=== PATIENT | male | born 1940 | race Caucasian/White ===

== ENCOUNTER 2018-07-19 16:58 | Inpatient (IN) | payer MEDICARE ==
[2018-07-19 17:43] VITALS: BMI 25.4
[2018-07-19 22:03] LABS: ALT (SGPT) 15 U/L (8-55); AST (SGOT) 34 U/L (5-34); Albumin 3.2 g/dL (3.4-4.8); Alkaline Phosphatase 55 U/L (40-150); Anion Gap 13 mmol/L (10-20); BUN (Urea Nitrogen) 10 mg/dL (8.4-25.7); Bilirubin, Total 1.2 mg/dL (0.2-1.2); Calc. Creatinine Clearance 86 mL/min (70-130); Calcium 8.9 mg/dL (7.8-10.44); Carbon Dioxide 25 mmol/L (23-31); Chloride 100 mmol/L (98-107); Estimated GFR-MDRD 86; Globulin 2.8 g/dL (2.4-3.5); Glucose 93 mg/dL (83-110); Potassium 3.9 mmol/L (3.5-5.1); Sodium 134 mmol/L (136-145)
[2018-07-19 22:05] LABS: #Basophils 0.1 thou/uL (0.0-0.2); #Eosinphils 0.3 thou/uL (0.0-0.7); #Lymphocytes 1.4 thou/uL (1.20-3.40); #Monocytes 0.6 thou/uL (0.11-0.59); #Neutrophils 3.7 thou/uL (1.40-6.50); %Basophils 0.8 % (0.0-1.0); %Eosinophils 5.1 % (0.0-10.0); %Lymphocytes 22.6 % (21.0-51.0); %Neutrophils 61.4 % (42.0-75.0); Hemoglobin 11.6 g/dL (14.0-18.0); Mean Corpuscular HGB CONC 33.3 g/dL (32.0-36.0); Mean Corpuscular Hemoglobin 30.4 pg (27.0-31.0); Mean Platelet Volume 6.8 fL (7.4-10.4); Platelet Count 204 thou/uL (130-400); RBC Distribution Width 11.3 % (11.5-14.5); Red Blood Cell (RBC) Count 3.81 mill/uL (4.70-6.10)
[2018-07-20] MEDS: Apixaban 5 MG TAB PO SCH ×3 (06:28→21:40)
[2018-07-20] MEDS: Dronedarone HCl 400 MG TAB PO SCH ×2 (08:35→17:49)
[2018-07-20] MEDS: traMADol HCl 50 MG TAB PO PRN (10:45)
[2018-07-21] MEDS: traMADol HCl 50 MG TAB PO PRN ×3 (00:31→16:41)
[2018-07-21] MEDS: Dronedarone HCl 400 MG TAB PO SCH ×2 (08:29→16:42)
[2018-07-21] MEDS: Apixaban 5 MG TAB PO SCH ×2 (08:29→19:31)
[2018-07-22] MEDS: traMADol HCl 50 MG TAB PO PRN ×2 (08:54→16:46)
[2018-07-22] MEDS: Dronedarone HCl 400 MG TAB PO SCH ×2 (08:54→16:46)
[2018-07-22] MEDS: Apixaban 5 MG TAB PO SCH ×2 (08:54→20:48)
--- NOTE | 2018-07-22 18:11 | PRG ---
DATE OF SERVICE: 07/21/2018 SUBJECTIVE: The patient feels well. Anticipating therapy tomorrow with no complaints. OBJECTIVE: VITAL SIGNS: Show blood pressure is down to 120/56, temperature is 96, pulse 72, respirations 18, O2 saturations 96% on room air. LUNGS: Clear. CARDIAC: Showed regular rhythm. ABDOMEN: Soft and nontender. EXTREMITIES: Right hip shows no swelling, erythema, or drainage in healing incision. ASSESSMENT: 1. Healing right total hip replacement. 2. Stable hypertension, controlled to goal. 3. Paroxysmal atrial fibrillation, appeared to be converted and controlled at sinus rhythm, but on persistent anticoagulation. PLAN: 1. Continue PT/OT. Continue pain relief. Continue to monitor for signs of recurrent atrial fibrillation. 2. Continue to monitor for signs of infection of the hip. Job ID: [id number]
--- NOTE | 2018-07-22 18:43 | HP ---
Admission to the skilled unit. HISTORY OF PRESENT ILLNESS: The patient is a very pleasant 77-year-old white male, status post recent right hip replacement with no complications, who was admitted to the skilled unit for continued physical therapy. He has comorbidities of paroxysmal atrial fibrillation, systolic heart failure with an ejection fraction of 45%, and a negative nuclear stress test in May of 2018. He also has a history of hypertension, which has been well controlled. He denies any chest pain, shortness of breath, palpitations, nausea, or vomiting. PAST MEDICAL HISTORY: Remarkable for the above mentioned plus osteoarthritis, causing the elective right hip replacement. HOME MEDICATIONS: Include: 1. Apixaban 5 mg twice daily for paroxysmal atrial fibrillation. 2. Multaq 400 mg twice daily. 3. Felodipine 5 mg daily. 4. Tramadol 50 mg every 8 hours as needed. ALLERGIES: HE HAS NO KNOWN ALLERGIES. SOCIAL HISTORY: He drinks 3 to 5 cans of beer today. He lives alone. He is an ex-smoker. FAMILY MEDICAL HISTORY: Positive for father of a heart attack at age 53. REVIEW OF SYSTEMS: HEENT: Denies any headaches, dizziness, change in vision or hearing, hoarseness, or dysphagia. PULMONARY: Denies cough, sputum production, pneumonia, asthma, or tuberculosis. CARDIOVASCULAR: Denies chest pain, orthopnea, paroxysmal nocturnal dyspnea, or edema. GASTROINTESTINAL: Denies nausea, vomiting, diarrhea, constipation, or abdominal pain. GENITOURINARY: Denies dysuria, hematuria, or nocturia. MUSCULOSKELETAL: Has some pain at the right lateral hip incision. NEUROLOGIC: Denies localized numbness, weakness, or extremities. PHYSICAL EXAMINATION: GENERAL: The patient is an elderly white male, somewhat agitated. He wishes therapy, but in no distress. VITAL SIGNS: Show him to have a temperature 98, pulse 76, respirations 20, O2 sat is 94% on room air, and blood pressure 130/65. HEENT: Pupils are equal, round, and reactive to light and accommodation. Sclerae anicteric. Conjunctivae pale. Oral mucous membranes well hydrated. NECK: Supple. There are no nodes or masses. JVP is not elevated. Carotids 2+ and equal without bruits. LUNGS: Clear. CARDIAC: Showed regular rhythm. No gallops or murmurs. ABDOMEN: Soft, nontender with no masses or organomegaly. SKIN/EXTREMITIES: Displayed healing right lateral hip incision. No erythema, warmth, or drainage. NEUROLOGICAL: Cranial nerves intact. Deep tendon reflexes 2+ and equal. Absent Babinski. LABORATORY DATA: Show a white count of 6000, hematocrit 34, and hemoglobin 11. Sodium is 134, potassium 3.9, chloride 100, bicarb 25, BUN 10, creatinine 0.86, glucose 93, and calcium 8.9, AST 34, ALT 15, albumin 3.2, and globulin 2.8. ASSESSMENT: A 77-year-old white male with history of osteoarthritis, status post elective right hip replacement, doing well, and admitted for therapy with no evidence of postop complications of infection or bleeding. 1. Hypertension, controlled to goal, on felodipine. We will continue. 2. Paroxysmal atrial fibrillation, converted to sinus rhythm on Multaq, but still on apixaban for rate control and anticoagulation. 3. Systolic heart failure with ejection fraction 45%, compensated. 4. History of alcohol abuse, drinking 5 cans of beer daily. 5. History of negative PET scan with no evidence of coronary artery disease. PLAN: 1. Continue PT and OT. 2. Continue home medications of apixaban twice daily, dronedarone twice daily, felodipine 5 mg daily, and tramadol as needed for pain. 3. Stress ulcer prophylaxis will be started. Job ID: [id number]
[2018-07-22] MEDS: Famotidine 20 MG TAB PO SCH (20:48)
--- NOTE | 2018-07-23 00:02 | HP ---
SUBJECTIVE: The patient feels well. Still somewhat agitated, unable to have therapy, but has been moved to the room where he can sit in his chair and do some exercises. OBJECTIVE: VITAL SIGNS: Shows his blood pressure is 153/65, temperature is 98, pulse 78, respirations 18, O2 sats 96% on room air. LUNGS: Clear. CARDIAC EXAMINATION: Regular rhythm. ABDOMEN: Soft and nontender. SKIN/EXTREMITIES: Show healing right lateral hip incision. ASSESSMENT: 1. Healing right total hip replacement. 2. Stable paroxysmal atrial fibrillation, still apparent sinus rhythm. 3. Hypertension, borderline control. We will continue on felodipine and monitor. PLAN: 1. Continue PT/OT. 2. Continue to monitor vital signs. 3. Continue rate control and anticoagulation of paroxysmal atrial fibrillation. 4. Continue pain relief with tramadol. Job ID: [id number]
--- NOTE | 2018-07-23 07:07 | PRG ---
DATE OF SERVICE: 07/22/2018 SUBJECTIVE: The patient feels well and very happy with therapy as he is sore all over, but feels that he is improving with therapy, and this is what he was requested. He is having no chest pain or shortness of breath or palpitations. OBJECTIVE: VITAL SIGNS: Temperature is 99.1, pulse 81, respirations 18, O2 sats 99% on room air, blood pressure 127/58. LUNGS: Clear. CARDIAC: Showed regular rhythm. ABDOMEN: Soft and nontender. EXTREMITIES: Right hip shows no swelling, erythema, or drainage. ASSESSMENT: 1. Resolving right total hip. 2. Stable hypertension. 3. Paroxysmal atrial fibrillation. No evidence for recurrence, on Multaq and apixaban with no evidence of bleeding. PLAN: Continue PT/OT. Continue pain relief as needed. Continue to monitor for atrial fibrillation. Continue to monitor for signs of infection. Job ID: [id number]
[2018-07-23] MEDS: Dronedarone HCl 400 MG TAB PO SCH ×2 (09:06→17:00)
[2018-07-23] MEDS: Famotidine 20 MG TAB PO SCH ×2 (09:06→20:56)
[2018-07-23] MEDS: Apixaban 5 MG TAB PO SCH ×2 (09:06→20:55)
[2018-07-23] MEDS: traMADol HCl 50 MG TAB PO PRN (09:06)
[2018-07-24] MEDS: Famotidine 20 MG TAB PO SCH ×2 (09:07→20:20)
[2018-07-24] MEDS: Dronedarone HCl 400 MG TAB PO SCH ×2 (09:08→17:47)
[2018-07-24] MEDS: traMADol HCl 50 MG TAB PO PRN (09:08)
[2018-07-24] MEDS: Apixaban 5 MG TAB PO SCH ×2 (09:08→20:20)
[2018-07-24] MEDS: HYDROcodone/Acetaminophen 5/325 mg Tablet PO PRN (15:40)
--- NOTE | 2018-07-24 20:18 | PRG ---
DATE OF SERVICE: 07/23/2018 SUBJECTIVE: The patient has no complaints. Cooperating with therapy, feels he is getting better. OBJECTIVE: VITAL SIGNS: Show temperature 97.7, pulse 61, respirations 20, O2 saturations 95% on room air, blood pressure is 138/65. LUNGS: Clear. CARDIAC: Showed regular rhythm. ABDOMEN: Soft and nontender. SKIN AND EXTREMITIES: Display a bandaged right hip with some mild bleeding. ASSESSMENT: 1. Resolving right total hip with some mild oozing. 2. Stable hypertension. 3. Stable paroxysmal atrial fibrillation. No evidence for recurrence. PLAN: 1. Continue PT, OT. 2. Continue pain relief. 3. Continue to monitor for recurrent atrial fibrillation. 4. Continue to monitor for signs of infection. Job ID: [id number]
--- NOTE | 2018-07-24 20:29 | PRG ---
DATE OF SERVICE: 07/24/2018 SUBJECTIVE: The patient feels increased pain in his right hip today after walking with therapy and has required pain medication. He feels more tired today too. OBJECTIVE: VITAL SIGNS: Show temperature is 98.7, pulse 64, respirations 20, O2 saturations 96% on room air, and blood pressure 118/58. MUSCULOSKELETAL: Right lateral hip incision shows some increased erythema with some irritation from the tape, but also increased tenderness. No drainage appreciable at this time. LUNGS: Clear. CARDIAC: Showed regular rhythm. ASSESSMENT: 1. Increasing pain and erythema of incision, possibly due to superficial infection. 2. No evidence of recurrent atrial fibrillation. 3. Improving deconditioning. 4. Stable hypertension. PLAN: 1. CBC, sedimentation rate, CRP, basic metabolic profile. 2. Started on Bactrim DS twice daily. 3. Culture any drainage. 4. Continue PT, OT, and pain relief. Job ID: [id number]
[2018-07-24] MEDS: Sulfameth/Trimethoprim DS 800-160mg TAB PO SCH (21:27)
[2018-07-25] MEDS: traMADol HCl 50 MG TAB PO PRN (03:25)
[2018-07-25 05:32] LABS: #Basophils 0.1 thou/uL (0.0-0.2); #Eosinphils 0.2 thou/uL (0.0-0.7); #Lymphocytes 1.3 thou/uL (1.20-3.40); #Monocytes 0.7 thou/uL (0.11-0.59); #Neutrophils 3.6 thou/uL (1.40-6.50); %Basophils 1.5 % (0.0-1.0); %Eosinophils 3.2 % (0.0-10.0); %Lymphocytes 22.1 % (21.0-51.0); %Monocytes 11.1 % (0.0-10.0); %Neutrophils 62.2 % (42.0-75.0); Mean Corpuscular HGB CONC 32.5 g/dL (32.0-36.0); Mean Corpuscular Hemoglobin 29.9 pg (27.0-31.0); Mean Corpuscular Volume 92.2 fL (78.0-98.0); Mean Platelet Volume 6.5 fL (7.4-10.4); Platelet Count 209 thou/uL (130-400); RBC Distribution Width 11.5 % (11.5-14.5); Red Blood Cell (RBC) Count 3.66 mill/uL (4.70-6.10); White Blood Cell (WBC) Count 5.8 thou/uL (4.8-10.8)
[2018-07-25 05:43] LABS: Anion Gap 12 mmol/L (10-20); BUN (Urea Nitrogen) 18 mg/dL (8.4-25.7); CRP (Inflammatory) Less than 0.50 mg/dL (= or < 0.5); Calc. Creatinine Clearance 77 mL/min (70-130); Carbon Dioxide 27 mmol/L (23-31); Chloride 105 mmol/L (98-107); Estimated GFR-MDRD 75; Glucose 104 mg/dL (83-110); Potassium 4.7 mmol/L (3.5-5.1); Sodium 139 mmol/L (136-145)
[2018-07-25] MEDS: Dronedarone HCl 400 MG TAB PO SCH ×2 (08:15→17:27)
[2018-07-25] MEDS: Sulfameth/Trimethoprim DS 800-160mg TAB PO SCH ×2 (08:16→21:17)
[2018-07-25] MEDS: Famotidine 20 MG TAB PO SCH ×2 (08:16→21:17)
[2018-07-25] MEDS: Apixaban 5 MG TAB PO SCH ×2 (08:16→21:17)
[2018-07-25] MEDS: HYDROcodone/Acetaminophen 5/325 mg Tablet PO PRN ×2 (08:23→19:31)
[2018-07-26] MEDS: HYDROcodone/Acetaminophen 5/325 mg Tablet PO PRN ×2 (08:22→20:40)
[2018-07-26] MEDS: Dronedarone HCl 400 MG TAB PO SCH ×2 (08:25→17:25)
[2018-07-26] MEDS: Sulfameth/Trimethoprim DS 800-160mg TAB PO SCH ×2 (08:25→20:40)
[2018-07-26] MEDS: Famotidine 20 MG TAB PO SCH ×2 (08:25→20:40)
[2018-07-26] MEDS: Apixaban 5 MG TAB PO SCH (08:27)
--- NOTE | 2018-07-26 13:31 | CT ---
RIGHT LOWER EXTREMITY CT WITHOUT IV CONTRAST: Date: 07/26/18 HISTORY: Severe right hip pain postoperatively. Patient is on anticoagulation. FINDINGS: Right total hip replacement changes are noted with very extensive adjacent artifact resulting in cons iderable image degradation. No evidence for dislocation or periprosthetic fracture demonstrated. Ther e is some asymmetric thickening in the soft tissues posteriorly and laterally in the region adjacent to the femur, primarily at the level of the lesser trochanter. The size of this asymmetric soft tissu e fullness measuring approximately 3.0 x 7.0 cm. Etiology of this asymmetric fullness is indeterminat e from this study, conceivably it could represent some hematoma or a prominent amount of fluid within the region of the trochanteric bursa. IMPRESSION: Total right hip replacement changes with extensive artifact. Some abnormal increased soft tissue dens ity lateral and posterior to the femur, primarily at the level of the lesser trochanter, nonspecific. Possibilities would include that of some focal hemorrhage or possibly a large amount of fluid collec tion within the trochanteric bursa. Superficial lateral subcutaneous fat stranding of the upper thigh . Short-term follow-up might be of benefit. POS: [facility]
--- NOTE | 2018-07-27 08:16 | PRG ---
DATE OF SERVICE: 07/27/2018 SUBJECTIVE: Mr. Lozano is a very pleasant 77-year-old white male, who is status post right hip replacement. He was transferred to [facility] for continued physical therapy and occupational therapy. He has comorbidities of paroxysmal atrial fib, systolic congestive heart failure with ejection fraction 45%, hypertension, osteoarthritis, elective total right hip replacement. The patient states he is doing fairly well. He is not having a lot of pain today. He is very pleased with therapy so far and very pleased with the food here. OBJECTIVE: VITAL SIGNS: Today reveal blood pressure 133/55, pulse 72-80, respirations 20, O2 saturation 96% to 97% on room air and T-max 99.3. GENERAL: This is a well-developed, well-nourished, thin white male, in no apparent distress at this time. HEENT: Reveals normocephalic and nontraumatic cranium. Pupils equally round and reactive. Extraocular movements are intact. Nose and throat are moist. NECK: Supple without masses, nodes or bruits. CHEST: Clear to auscultation. No rales, rhonchi, wheezes are heard. HEART: Reveals a regular rate and rhythm without murmurs, gallops, or rubs. ABDOMEN: Soft, scaphoid, nontender without organomegaly. Normal bowel sounds are noted. No rebound or guarding is noted. : Exam is deferred. EXTREMITIES: Reveal right lateral hip incision is slowly healing. No significant drainage, erythema, or warmth is noted. NEUROLOGIC: The patient is oriented to person, place, and time. ASSESSMENT: 1. Status post elective right hip replacement. 2. Hypertension. 3. Paroxysmal atrial fibrillation, presently in normal sinus rhythm, on Multaq and apixaban for anticoagulation. 4. Systolic congestive heart failure with ejection fraction 45%, stable. 5. History of alcohol abuse, drinking 5 cans of beer a day. 6. Generalized weakness. PLAN: 1. Continue physical therapy and occupational therapy. 2. Continue apixaban b.i.d. 3. Stress ulcer prophylaxis. 4. Decubitus precautions. 5. DVT prophylaxis. 6. Supportive care. Job ID: [id number] [facility]
[2018-07-27] MEDS: Famotidine 20 MG TAB PO SCH ×2 (08:19→21:01)
[2018-07-27] MEDS: Dronedarone HCl 400 MG TAB PO SCH ×2 (08:19→16:53)
[2018-07-27] MEDS: Sulfameth/Trimethoprim DS 800-160mg TAB PO SCH ×2 (08:20→21:01)
[2018-07-27] MEDS: HYDROcodone/Acetaminophen 5/325 mg Tablet PO PRN ×3 (08:21→21:01)
[2018-07-28] MEDS: HYDROcodone/Acetaminophen 5/325 mg Tablet PO PRN ×3 (05:45→16:38)
--- NOTE | 2018-07-28 07:41 | PRG ---
DATE OF SERVICE: 07/28/2018 SUBJECTIVE: Mr. Lozano is a very pleasant 77-year-old white male. He had a right hip replacement and postoperatively was transferred to [facility] for PT and OT. Unfortunately, he has comorbidities of paroxysmal atrial fib, systolic congestive heart failure with ejection fraction of 45%, hypertension, osteoarthritis. The patient states he is still doing fairly well and has no complaints. He still has some drainage from his hematoma, but we have stopped his apixaban. OBJECTIVE: VITAL SIGNS: Today, reveal blood pressure 125/58, pulse 55 to 72, respirations 18, O2 saturation 94% to 96% on room air, T-max 98.3. GENERAL: This is a well-developed, well-nourished, very pleasant, 77-year-old white male, who states he is doing fairly well and has no complaints today. HEENT: Normocephalic and nontraumatic cranium. Pupils are equally round and reactive. Extraocular movements are intact. Nose and throat are slightly dry, but clear. NECK: Supple without masses, nodes, or bruits. CHEST: Clear to auscultation. No rales, rhonchi, or wheezes are heard. No cough is noted. HEART: Reveals a regular rate and rhythm without murmurs, gallops, or rubs. ABDOMEN: Soft and nontender without organomegaly. Normal bowel sounds are noted. No rebound or guarding is noted. : Deferred. EXTREMITIES: Reveal no clubbing, cyanosis, or edema. The patient's right lateral hip incision continues to heal well without warmth, redness, erythema, or drainage. NEUROLOGIC: The patient is oriented x3. ASSESSMENT: 1. Status post elective total right hip replacement. 2. Hypertension. 3. Paroxysmal atrial tachycardia, presently normal sinus rhythm, presently on Multaq and apixaban for anticoagulation. 4. Systolic congestive heart failure with the EF of 45%. 5. History of alcohol abuse with the patient drinking 5 cans of beer a day. 6. Generalized weakness. PLAN: 1. Continue apixaban b.i.d. 2. Stress ulcer prophylaxis. 3. Decubitus precautions. 4. DVT prophylaxis. 5. Continue physical therapy and occupational therapy. 6. Supportive care. Job ID: [id number]
[2018-07-28] MEDS: Famotidine 20 MG TAB PO SCH ×2 (08:40→21:46)
[2018-07-28] MEDS: Dronedarone HCl 400 MG TAB PO SCH ×2 (08:40→16:38)
[2018-07-28] MEDS: Sulfameth/Trimethoprim DS 800-160mg TAB PO SCH ×2 (08:41→21:46)
[2018-07-29] MEDS: HYDROcodone/Acetaminophen 5/325 mg Tablet PO PRN ×2 (05:40→14:54)
[2018-07-29] MEDS: Dronedarone HCl 400 MG TAB PO SCH ×2 (08:54→17:40)
[2018-07-29] MEDS: Sulfameth/Trimethoprim DS 800-160mg TAB PO SCH (08:54)
[2018-07-29] MEDS: Famotidine 20 MG TAB PO SCH ×2 (08:54→20:57)
--- NOTE | 2018-07-29 11:29 | PRG ---
DATE OF SERVICE: 07/26/2018 SUBJECTIVE: The patient has increasing pain in the right hip and increasing swelling. OBJECTIVE: VITAL SIGNS: Show temperature 99.3, pulse 84, respirations 20, O2 sats 97% on room air, and blood pressure 127/58. CT scan of the right hip shows increased soft tissue density lateral and posterior to the femur primarily at the level of lesser trochanter consistent with hematoma of the trochanteric bursa. ASSESSMENT: 1. Hematoma, trochanteric bursa in a patient status post right total hip on Eliquis. 2. Paroxysmal atrial fibrillation with no evidence for recurrence on Multaq. PLAN: Discontinue Eliquis. Continue ice packs to right hip. Continue Bactrim DS for possibly infection although doubtful. Continue pain relief as needed. Hold physical therapy. Job ID: [id number]
--- NOTE | 2018-07-29 11:29 | PRG ---
DATE OF SERVICE: 07/25/2018 SUBJECTIVE: The patient is having increasing pain in his hip and is able to do his therapy and is requiring more pain medicine. OBJECTIVE: VITAL SIGNS: Show temperature is 98.3, pulse 81, respirations 18, O2 saturations 97% on room air, blood pressure 129/59. LUNGS: Clear. CARDIAC: Regular rhythm. EXTREMITIES: Right hip shows some swelling, mild erythema. No drainage around the right hip. LABORATORY DATA: White count is 5800, hematocrit is 33, hemoglobin is 11. Sedimentation rate is 23. CRP is less than 0.5. Sodium 139, potassium 4.7, chloride 105, bicarb 27, BUN 18, creatinine 0.97, glucose 104, calcium 9.0. ASSESSMENT: Swelling of the right leg with increasing pain in a patient already on full-dose anticoagulation, concerned about infection, although no evidence of increasing inflammatory markers. I feel this may be due to a hematoma. PLAN: CT scan of the right hip to evaluate for hematoma. Continue tramadol for pain and add hydrocodone as needed. Hold therapy today. Job ID: [id number]
--- NOTE | 2018-07-29 11:34 | PRG ---
DATE OF SERVICE: 07/29/2018 SUBJECTIVE: The patient is visiting with daughter, and I explained to them the situation of increased risk of cerebral emboli with paroxysmal atrial fibrillation, although the patient now has not had any recurrence of that documented during his entire hospital stay and since he has been on Multaq. I also explained to them that his pain in his leg is most likely not due to infection, but due to hematoma. After discussion of the risks, he and his daughter and myself all agree that we would continue to hold the apixaban and monitor for recurrent atrial fibrillation on Multaq. The patient states he is feeling better with persistent but decreased pain, and we will attempt therapy, although, he states he has gotten weaker again. OBJECTIVE: VITAL SIGNS: Show his blood pressure is 127/58, temperature is 97, pulse 65, respirations 16, and O2 saturations 98% on room air. LUNGS: Clear. CARDIAC: Showed regular rhythm. ABDOMEN: Soft and nontender. MUSCULOSKELETAL: Right lateral hip shows persistent swelling, but slightly decreased tenderness with ice pack. ASSESSMENT: 1. Hematoma of the right hip, status post right total hip in a patient on apixaban for paroxysmal atrial fibrillation. 2. Paroxysmal atrial fibrillation, no evidence of recurrence, on Multaq. PLAN: 1. Continue off apixaban. 2. Continue ice pack. 3. Continue to monitor for atrial fibrillation. 4. Continue pain relief and restart physical therapy. Job ID: [id number]
[2018-07-29] MEDS ORDERED: AMOXicillin 500 MG CAP PO SCH (14:00)
[2018-07-29] MEDS: AMOXicillin 250 MG CAP PO SCH ×2 (15:40→22:36)
[2018-07-29] MEDS: traMADol HCl 50 MG TAB PO PRN (17:43)
[2018-07-30] MEDS: AMOXicillin 250 MG CAP PO SCH ×3 (06:20→22:31)
[2018-07-30] MEDS: Dronedarone HCl 400 MG TAB PO SCH ×2 (08:12→17:38)
[2018-07-30] MEDS: Famotidine 20 MG TAB PO SCH ×2 (08:12→20:15)
[2018-07-30] MEDS: traMADol HCl 50 MG TAB PO PRN ×2 (08:12→17:39)
[2018-07-30] MEDS: Colchicine 0.6 MG TAB PO SCH ×2 (09:44→20:15)
[2018-07-30] MEDS: HYDROcodone/Acetaminophen 5/325 mg Tablet PO PRN (13:44)
[2018-07-31] MEDS: AMOXicillin 250 MG CAP PO SCH ×3 (06:02→21:57)
--- NOTE | 2018-07-31 07:24 | PRG ---
DATE OF SERVICE: 07/30/2018 SUBJECTIVE: The patient feels slightly better with decreasing pain in his right hip, is able to do some therapy, but is now complaining of pain in his right 1st metatarsal phalangeal joint. He has a distant history of gout and states that this feels similar. OBJECTIVE: EXTREMITIES: His right MTP joint is not red or swollen, but is severely tender. His right lateral hip incision is clean and dry and swelling appears to be slightly improving. LUNGS: Clear. CARDIAC: Showed regular rhythm. VITAL SIGNS: Temperature 97.4, pulse 77, respirations 20, O2 sats 97% on room air, and blood pressure 120/56. ASSESSMENT: 1. Resolving hematoma of the right leg with ice packs. 2. Probable new onset of recurrent gout. 3. Atrial fibrillation, appeared to be controlled with normal sinus rhythm on EKG and exam. 4. Hypertension, controlled to goal. PLAN: 1. Obtain uric acid. 2. Start colchicine 0.6 mg twice daily for 3 days. 3. Continue Multaq 400 mg twice daily and monitor for recurrent atrial fibrillation. 4. Continue off anticoagulation until hip is improved or signs of atrial fibrillation. Job ID: [id number]
[2018-07-31] MEDS: Famotidine 20 MG TAB PO SCH ×2 (08:04→20:30)
[2018-07-31] MEDS: Colchicine 0.6 MG TAB PO SCH ×2 (08:04→20:30)
[2018-07-31] MEDS: Dronedarone HCl 400 MG TAB PO SCH ×2 (08:04→17:12)
[2018-07-31] MEDS: HYDROcodone/Acetaminophen 5/325 mg Tablet PO PRN ×2 (08:05→14:16)
[2018-08-01] MEDS: AMOXicillin 250 MG CAP PO SCH ×3 (06:00→22:18)
[2018-08-01] MEDS: Dronedarone HCl 400 MG TAB PO SCH ×2 (08:23→16:23)
[2018-08-01] MEDS: Famotidine 20 MG TAB PO SCH ×2 (08:24→22:18)
[2018-08-01] MEDS: Colchicine 0.6 MG TAB PO SCH ×2 (08:24→22:18)
[2018-08-01] MEDS: HYDROcodone/Acetaminophen 5/325 mg Tablet PO PRN ×2 (08:24→14:15)
--- NOTE | 2018-08-01 10:21 | ULT ---
FEXAM: Right lower extremity venous duplex: Deep veins evaluated with color Doppler, spectral analysis, and compression. INDICATIONS: Right lower extremity pain and edema. FINDINGS: Deep veins interrogated include common femoral vein, femoral vein, popliteal vein, and post erior tibial vein. These veins show normal compression and blood flow. No evidence of DVT. IMPRESSION: Negative Right venous duplex exam.
--- NOTE | 2018-08-01 18:13 | PRG ---
DATE OF SERVICE: 07/31/2018 SUBJECTIVE: The patient feels better with decreasing pain in his thigh, increasing mobility. Still some pain in his right great toe. OBJECTIVE: VITAL SIGNS: With temperature of 98, pulse 75, respirations 20, O2 saturations 97% on room air, and blood pressure 106/53. LUNGS: Clear. CARDIAC: Regular rhythm. EXTREMITIES: Right thigh shows decreasing edema and swelling and tenderness, right 1st metatarsophalangeal joint shows decreased but persistent tenderness. LABORATORY DATA: Laboratories did show uric acid of 5.0. ASSESSMENT: 1. Resolving acute gout of right metatarsophalangeal joint. 2. Resolving subcutaneous hematoma of right hip, off apixaban. 3. No evidence of deep venous thrombosis on recent ultrasound after evaluation by surgeon. 4. Stable sinus rhythm with no evidence for recurrent atrial fibrillation. PLAN: 1. Continue physical therapy, occupational therapy. 2. Continue colchicine. 3. Continue pain relief as needed. 4. Continue oral antibiotics, Keflex. Job ID: [id number]
[2018-08-02] MEDS: AMOXicillin 250 MG CAP PO SCH ×3 (06:00→22:01)
[2018-08-02] MEDS: traMADol HCl 50 MG TAB PO PRN ×2 (08:44→17:31)
[2018-08-02] MEDS: Famotidine 20 MG TAB PO SCH ×2 (08:44→22:01)
[2018-08-02] MEDS: Dronedarone HCl 400 MG TAB PO SCH ×2 (08:44→17:31)
[2018-08-02] MEDS: Colchicine 0.6 MG TAB PO SCH ×2 (09:16→22:01)
[2018-08-03] MEDS: AMOXicillin 250 MG CAP PO SCH ×3 (05:59→22:03)
[2018-08-03] MEDS: Famotidine 20 MG TAB PO SCH ×2 (09:40→22:03)
[2018-08-03] MEDS: Dronedarone HCl 400 MG TAB PO SCH ×2 (09:40→17:07)
--- NOTE | 2018-08-03 16:47 | PRG ---
DATE OF SERVICE: 08/03/2018 SUBJECTIVE: Mr. Lozano is up in his chair and denies any complaints. He apparently had a good bowel movement. No family at bedside. OBJECTIVE: VITAL SIGNS: He is afebrile, heart rate is 49, respirations 20, oxygen saturation 100% on room air, blood pressure is 142/65. CARDIOVASCULAR SYSTEM: S1 and S2 plus. RESPIRATORY SYSTEM: Normal vesicular breath sounds. ABDOMEN: Soft and nontender. Bowel sounds heard in all quadrants. EXTREMITIES: Without cyanosis or clubbing. Peripheral pulses are palpable. Right hip incision is healthy. CENTRAL NERVOUS SYSTEM: AAO x3. Cranial nerves 2 through 12 intact. Improving weakness. IMPRESSION: 1. Osteoarthritis status post right hip replacement. 2. Atrial fibrillation. 3. Hypertension. 4. Chronic systolic congestive heart failure. 5. History of alcohol abuse. PLAN: 1. Continue current medications. 2. Heart healthy diet. 3. Monitor heart rate and rhythm. 4. Incision care. 5. Orthopedic precautions. 6. DVT and stress ulcer prophylaxis. 7. Decubitus precautions. 8. Routine laboratory values. 9. Monitor for any decompensation of heart failure. 10. Discussed with the patient and nursing in detail and all questions answered. Job ID: [id number]
[2018-08-03] MEDS: HYDROcodone/Acetaminophen 5/325 mg Tablet PO PRN (17:07)
[2018-08-04] MEDS: AMOXicillin 250 MG CAP PO SCH ×3 (06:02→21:50)
[2018-08-04] MEDS: Famotidine 20 MG TAB PO SCH ×2 (08:41→21:50)
[2018-08-04] MEDS: Dronedarone HCl 400 MG TAB PO SCH ×2 (08:41→17:11)
--- NOTE | 2018-08-04 16:31 | PRG ---
DATE OF SERVICE: 08/04/2018 SUBJECTIVE: Mr. Lozano is resting comfortably in bed and denies any complaints. He states he is ready to go home in need of his own cooking. No family at bedside. OBJECTIVE: VITAL SIGNS: He is afebrile. Heart rate is 70, respirations are 18, oxygen saturation is 97% on room air, blood pressure is 132/62. CARDIOVASCULAR: S1, S2 plus. RESPIRATORY: Normal vesicular breath sounds. ABDOMEN: Soft, nontender. Bowel sounds heard in all quadrants. EXTREMITIES: Without cyanosis, clubbing. Peripheral pulses are palpable. Hip incision is healthy. IMPRESSION: 1. Osteoarthritis, status post right total hip replacement. 2. Atrial fibrillation. 3. Hypertension. 4. Chronic systolic congestive heart failure, well controlled. 5. History of alcohol abuse. PLAN: 1. Continue current medications. 2. Heart healthy diet. 3. Monitor heart rate and rhythm. 4. Incision care and orthopedic precautions. 5. DVT and stress ulcer prophylaxis. 6. Decubitus precaution. 7. Physical therapy. 8. Routine laboratory values. 9. Discussed with the patient in detail. All questions answered. Job ID: [id number]
[2018-08-05] MEDS: AMOXicillin 250 MG CAP PO SCH ×3 (06:11→21:05)
[2018-08-05] MEDS: Famotidine 20 MG TAB PO SCH ×2 (08:31→21:04)
[2018-08-05] MEDS: Dronedarone HCl 400 MG TAB PO SCH ×2 (08:31→16:48)
[2018-08-05] MEDS: HYDROcodone/Acetaminophen 5/325 mg Tablet PO PRN (08:32)
[2018-08-06] MEDS: AMOXicillin 250 MG CAP PO SCH (05:29)
--- NOTE | 2018-08-06 05:53 | PRG ---
DATE OF SERVICE: 08/05/2018 SUBJECTIVE: Patient feels better with decreasing shoulder pain today, although still present and decreasing hip pain, is ready to do more therapy today. He is having no shortness of breath, chest pain, or palpitations. OBJECTIVE: VITAL SIGNS: Shows temperature is 97.9, pulse 60, respirations 20, O2 sats 97% on room air, blood pressure 126/63. LUNGS: Clear. CARDIAC: Regular rhythm. ABDOMEN: Soft, nontender. MUSCULOSKELETAL: Right hip is healing well, decreasing tenderness. Right great toe is greatly improved. Right shoulder shows increased range of motion, but cone tender. ASSESSMENT: 1. Right rotator cuff injury with recent exacerbation. We will continue to monitor and we will discuss with PT/OT. 2. Paroxysmal atrial fibrillation with no evidence of recurrence, on Multaq. We will continue off anticoagulation. 3. Resolving hematoma, right trochanteric area. 4. Resolving right total hip replacement. 5. Improving deconditioning, working with therapy. PLAN: 1. Continue PT/OT of the hip, but also the shoulder. 2. Discontinue amoxicillin. There is no evidence of infection. 3. Continue pain relief as needed. 4. Continue Multaq and monitor for recurrent atrial fibrillation. Job ID: [id number]
--- NOTE | 2018-08-06 07:17 | PRG ---
DATE OF SERVICE: 08/02/2018 SUBJECTIVE: Patient feels well except for pain in his right shoulder which he states he has had chronically in the past, which he exacerbated yesterday while trying to move in the bed. His right hip appears to be doing better. He has seen his orthopedic surgeon this week, who states that he feels his right hip is improving well. He has had ultrasound document no DVT and he has been taken off his apixaban because of recent hematoma. OBJECTIVE: VITAL SIGNS: Shows blood pressure is 138/66, temperature is 97.5, pulse 66, respirations 20, O2 sats 98% on room air. LUNGS: Clear. CARDIAC: Irregularly irregular rhythm. ABDOMEN: Soft and nontender. SKIN/EXTREMITIES: Displayed no edema, clubbing, or cyanosis. There is some tenderness over the right lateral hip with no evidence of significant ecchymoses, oozing or bleeding from the incision. 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 Right calf is within normal limits. ASSESSMENT: 1. Stable sinus rhythm. No evidence of recurrent atrial fibrillation on Multaq. 2. Resolving subcutaneous hematoma of the right hip, off apixaban. 3. Resolving right total hip replacement, status post recent orthopedic evaluation. 4. No evidence of deep vein thrombosis. 5. Right shoulder rotator cuff injury, chronic with recent exacerbation. PLAN: 1. I have the patient discussed with PT/OT for right shoulder. 2. Continue colchicine. 3. Continue oral antibiotics, Keflex. 4. Continue pain relief as needed. Job ID: [id number]
[2018-08-06] MEDS: Dronedarone HCl 400 MG TAB PO SCH ×2 (08:06→16:25)
[2018-08-06] MEDS: Famotidine 20 MG TAB PO SCH ×2 (08:07→20:43)
[2018-08-06] MEDS: HYDROcodone/Acetaminophen 5/325 mg Tablet PO PRN (08:07)
--- NOTE | 2018-08-06 15:13 | PRG ---
DATE OF SERVICE: 08/06/2018 SUBJECTIVE: Mr. Lozano is doing well. Denies any complaints, resting comfortably, improving with therapy. His daughter is in the room. He is hoping he can get to go home soon. Discussed with therapy and they stated that he should be ready to go tomorrow. He states that he does not need any new prescriptions. He does have a prescription for pain medication. I advised him to follow up with his PCP and his orthopedic surgeon in the next 1 to 2 weeks. He was advised to call us with any questions or concerns. OBJECTIVE: VITAL SIGNS: He is afebrile. Heart rate 60, respirations 18, oxygen saturation 97% on room air, and blood pressure 136/64. CARDIOVASCULAR SYSTEM: S1 and S2 plus. RESPIRATORY: Normal vesicular breath sounds. ABDOMEN: Soft and nontender. Bowel sounds heard in all quadrants. EXTREMITIES: Without cyanosis or clubbing. Trace edema in right leg. Right hip incision is healthy. IMPRESSION: 1. Osteoarthritis, status post right total hip replacement. 2. Paroxysmal atrial fibrillation. 3. Right rotator cuff injury. 4. Hypertension. 5. Chronic systolic congestive heart failure. 6. History of alcohol abuse. 7. Improving deconditioning. PLAN: 1. Continue current medications. 2. Nutritional support. 3. Heart healthy diet. 4. Orthopedic precautions. 5. DVT and stress ulcer prophylaxis. 6. Decubitus precaution. 7. Routine laboratory values. 8. Anticipate discharging him to home tomorrow. Apparently, home health has been arranged. He is to follow up with his PCP and his orthopedic surgeon in 1 to 2 weeks. Discussed with the patient and daughter in detail, and all questions answered. Job ID: [id number]
[2018-08-07 08:49] VITALS: BP 119/56; TEMP 98
[2018-08-07] MEDS: Dronedarone HCl 400 MG TAB PO SCH (09:06)
[2018-08-07] MEDS: Famotidine 20 MG TAB PO SCH (09:06)
--- NOTE | 2018-08-09 04:11 | DIS ---
DATE OF ADMISSION: 07/19/2018 DATE OF DISCHARGE: 08/07/2018 PRINCIPAL DIAGNOSES: Osteoarthritis requiring right hip replacement. SECONDARY DIAGNOSES: 1. Paroxysmal atrial fibrillation. 2. Chronic systolic congestive heart failure with ejection fraction of 45%. 3. Hypertension. COMPLICATIONS: None. ADVERSE REACTIONS: None. PROCEDURES: None. CONSULTATIONS: Physical Therapy and Occupational Therapy. HOSPITAL COURSE: The patient was admitted after undergoing right total hip replacement and was transferred here for therapy. He has done well with therapy and was deemed stable for discharge. He has had no issues from his breathing or from his heart failure standpoint. I spoke with his daughter in detail and all questions answered. He stated that he did not need any prescriptions. He was advised to follow up with his PCP and his orthopedic surgeon in 1 to 2 weeks. ACTIVITY RESTRICTIONS: Per his orthopedic surgeon. DISCHARGE PHYSICAL EXAMINATION: VITAL SIGNS: On the day of discharge, he is afebrile, heart rate is 58, respirations 16, oxygen saturation 98% on room air, blood pressure 119/56. CARDIOVASCULAR SYSTEM: S1, S2 plus. RESPIRATORY: Normal vesicular breath sounds. ABDOMEN: Soft, nontender. Bowel sounds heard in all quadrants. EXTREMITIES: Without cyanosis, clubbing. Hip incision is healthy. CENTRAL NERVOUS SYSTEM: AAO x3. Cranial nerves 2 through 12 intact. NEUROLOGIC: Grossly nonfocal. DISCHARGE MEDICATIONS: 1. Eliquis 5 mg p.o. b.i.d. 2. Multaq 400 mg p.o. b.i.d. 3. Felodipine 5 mg daily. 4. Tramadol 50 mg q.8 p.r.n. For full details, please see chart. Job ID: [id number]
== END 2018-08-07 11:00 | disposition home health service (06) | DRG 560 ==
LOC: NAV ACUTE 16:58
PROVIDERS: ADMIT Internal Medicine; ATTEND Internal Medicine
DX: Z47.1 Aftercare following joint replacement surgery (principal); I50.22 Chronic systolic (congestive) heart failure; I48.0 Paroxysmal atrial fibrillation; I11.0 Hypertensive heart disease with heart failure; F10.11 Alcohol abuse, in remission; R53.1 Weakness; M10.9 Gout, unspecified; M79.81 Nontraumatic hematoma of soft tissue; S46.001A Unspecified injury of muscle(s) and tendon(s) of the rotator cuff of right shoulder, initial encounter; R53.81 Other malaise; Z96.641 Presence of right artificial hip joint; Z87.891 Personal history of nicotine dependence; X58.XXXA Exposure to other specified factors, initial encounter
CPT/HCPCS: 36415; 80048; 80053; 84550; 85025; 85652; 86140; 87070; 87077; 87186; 87205

== ENCOUNTER 2020-03-05 18:49 | Inpatient (IN) | payer MEDICARE, BC ==
[2020-03-06] MEDS: traMADol HCl 50 MG TAB PO PRN ×2 (05:51→21:08)
[2020-03-06] MEDS ORDERED: Ondansetron ODT 4 MG TAB PO PRN (08:27)
[2020-03-06] MEDS ORDERED: Apixaban 5 MG TAB PO SCH (09:30)
[2020-03-06] MEDS ORDERED: Famotidine 20 MG TAB PO SCH (09:30)
[2020-03-06 10:47] LABS: #Basophils 0.1 thou/uL (0.0-0.2); #Eosinphils 0.1 thou/uL (0.0-0.7); #Lymphocytes 1.3 thou/uL (1.20-3.40); #Monocytes 0.8 thou/uL (0.11-0.59); #Neutrophils 4.9 thou/uL (1.40-6.50); %Basophils 1.1 % (0.0-1.0); %Eosinophils 1.6 % (0.0-10.0); %Monocytes 10.6 % (0.0-10.0); %Neutrophils 68.6 % (42.0-75.0); Hemoglobin 12.6 g/dL (14.0-18.0); Mean Corpuscular HGB CONC 32.6 g/dL (32.0-36.0); Mean Corpuscular Hemoglobin 31.3 pg (27.0-31.0); Mean Corpuscular Volume 95.8 fL (78.0-98.0); Platelet Count 149 thou/uL (130-400); RBC Distribution Width 11.2 % (11.5-14.5); Red Blood Cell (RBC) Count 4.03 mill/uL (4.70-6.10); White Blood Cell (WBC) Count 7.2 thou/uL (4.8-10.8)
[2020-03-06 11:02] LABS: ALT (SGPT) 9 U/L (8-55); AST (SGOT) 35 U/L (5-34); Albumin 3.4 g/dL (3.4-4.8); Alkaline Phosphatase 54 U/L (40-110); Anion Gap 13 mmol/L (10-20); BUN (Urea Nitrogen) 16 mg/dL (8.4-25.7); Bilirubin, Total 1.5 mg/dL (0.2-1.2); Calc. Creatinine Clearance 69 mL/min (70-130); Calcium 8.4 mg/dL (7.8-10.44); Carbon Dioxide 24 mmol/L (23-31); Chloride 100 mmol/L (98-107); Estimated GFR-MDRD 68; Globulin 2.6 g/dL (2.4-3.5); Glucose 90 mg/dL (83-110); Potassium 4.1 mmol/L (3.5-5.1); Sodium 133 mmol/L (136-145)
--- NOTE | 2020-03-06 19:53 | HP ---
HISTORY OF PRESENT ILLNESS: The patient is a very pleasant 79-year-old white male, who has recently undergone a left total hip replacement with no complications, but has been unable to maintain ADLs during the hospital and therefore was transferred back to [facility] for more therapy. He has had similar right total hip replacement several years ago, which improved greatly with therapy and wishes to continue this. He has comorbidities of paroxysmal atrial fibrillation, maintained in sinus rhythm at this time on metoprolol 25 mg daily with anticoagulation with apixaban 5 mg twice daily. This was stopped for surgery, but has been restarted yesterday. He has had no bleeding. He has no history of myocardial infarction. Does have a history of systolic heart failure with ejection fraction of 45%, but has had a negative stress test in the last several years. He also has a history of hypertension, which has been well controlled, and history of obviously significant osteoarthritis causing the elective right hip replacement and now an elective left hip, now he is complaining of some soreness and pain in his hip with movement and is requiring tramadol for pain relief. ALLERGIES: HE HAS NO KNOWN ALLERGIES. SOCIAL HISTORY: He lives alone. He is a distant smoker, has stopped. He does drink 3 cans of beer daily. FAMILY MEDICAL HISTORY: Positive for early heart attack in his father at age 53. REVIEW OF SYSTEMS: HEENT: Denies headaches, dizziness, change in vision or hearing, hoarseness, or dysphagia. PULMONARY: Denies cough, sputum production, pneumonia, asthma, or tuberculosis. CARDIOVASCULAR: Denies chest pain, orthopnea, paroxysmal nocturnal dyspnea, or edema. GASTROINTESTINAL: Denies nausea, vomiting, diarrhea, constipation, or abdominal pain. GENITOURINARY: Denies dysuria, hematuria, or nocturia. MUSCULOSKELETAL: He has pain only at the left lateral hip incision. His right hip replacement has no pain. NEUROLOGIC: Denies localized numbness or tingling in arms or extremities. PHYSICAL EXAMINATION: GENERAL: Shows him to be elderly white male, lying in the bed, in no acute distress. VITAL SIGNS: Show temperature of 98.7, pulse 94, respirations 20, O2 saturations 98% on room air, and blood pressure 131/59. HEENT: Pupils are equal, round, and reactive to light and accommodation. Sclerae are anicteric. Conjunctivae are pale. Oral mucous membranes well hydrated. NECK: Supple. No nodes or masses. JVP is not elevated. LUNGS: Clear. CARDIAC: Shows an irregular rhythm. ABDOMEN: Soft and nontender. SKIN AND EXTREMITIES: Display left lateral hip incision with bandage in place. No evidence of drainage or erythema, but significant induration around it with some tenderness. Pedal pulse 2+ and equal. NEUROLOGIC: Intact. LABORATORY DATA: Most recent laboratories not available and we will obtain on admission. ASSESSMENT: 1. Resolving left total hip, secondary to osteoarthritis. 2. Atrial fibrillation, rate controlled, on anticoagulation. 3. Hypertension, controlled to goal. 4. Systolic heart failure, most recent ejection fraction 45%. PLAN: 1. Continue PT, OT. 2. Continue metoprolol and apixaban. 3. Start tramadol as needed for pain. 4. Obtain EKG to document rhythm. Job ID: [id number]
[2020-03-06] MEDS: Apixaban 5 MG TAB PO SCH (21:07)
[2020-03-06] MEDS: Famotidine 20 MG TAB PO SCH (21:07)
[2020-03-07] MEDS: Famotidine 20 MG TAB PO SCH ×2 (08:39→20:10)
[2020-03-07] MEDS: Apixaban 5 MG TAB PO SCH ×2 (08:40→20:10)
[2020-03-07] MEDS: traMADol HCl 50 MG TAB PO PRN ×2 (12:10→20:10)
--- NOTE | 2020-03-07 18:57 | PRG ---
DATE OF SERVICE: 03/07/2020 SUBJECTIVE: The patient feels well, although he has not taken any medication today. He only has pain on movement; however, advised him to take his medication tomorrow prior to therapy. He is having no shortness of breath or palpitations. He has been eating well. OBJECTIVE: VITAL SIGNS: Shows his temperature is 96.4, pulse 83, respirations 18, O2 saturations 98% on room air, blood pressure 144/63. LUNGS: Clear. CARDIAC: Shows regular rhythm. Occasional extrasystoles. ABDOMEN: Soft and nontender. MUSCULOSKELETAL: Left hip incision is healing well. ASSESSMENT: 1. Resolving left hip replacement. 2. Resolved atrial fibrillation, now with sinus rhythm, may be paroxysmal, on anticoagulation. 3. Systolic heart failure, stable with ejection fraction of 45%. 4. Hypertension, controlled to goal. PLAN: 1. Continue PT and OT. 2. Stress pain medicine prior to therapy. 3. Continue metoprolol and apixaban for paroxysmal atrial fibrillation. Job ID: [id number]
[2020-03-08 05:27] LABS: #Basophils 0.1 thou/uL (0.0-0.2); #Eosinphils 0.4 thou/uL (0.0-0.7); #Lymphocytes 1.5 thou/uL (1.20-3.40); #Monocytes 0.8 thou/uL (0.11-0.59); #Neutrophils 3.9 thou/uL (1.40-6.50); %Basophils 1.4 % (0.0-1.0); %Eosinophils 5.7 % (0.0-10.0); %Lymphocytes 22.9 % (21.0-51.0); %Monocytes 11.6 % (0.0-10.0); %Neutrophils 58.3 % (42.0-75.0); Hemoglobin 11.9 g/dL (14.0-18.0); Mean Corpuscular HGB CONC 33.4 g/dL (32.0-36.0); Mean Corpuscular Hemoglobin 31.9 pg (27.0-31.0); Mean Corpuscular Volume 95.5 fL (78.0-98.0); Mean Platelet Volume 6.9 fL (7.4-10.4); Platelet Count 168 thou/uL (130-400); Red Blood Cell (RBC) Count 3.73 mill/uL (4.70-6.10); White Blood Cell (WBC) Count 6.7 thou/uL (4.8-10.8)
[2020-03-08 05:48] LABS: ALT (SGPT) 13 U/L (8-55); AST (SGOT) 28 U/L (5-34); Albumin 3.1 g/dL (3.4-4.8); Alkaline Phosphatase 52 U/L (40-110); Anion Gap 12 mmol/L (10-20); BUN (Urea Nitrogen) 20 mg/dL (8.4-25.7); Calc. Creatinine Clearance 59 mL/min (70-130); Calcium 8.3 mg/dL (7.8-10.44); Carbon Dioxide 26 mmol/L (23-31); Chloride 99 mmol/L (98-107); Estimated GFR-MDRD 61; Globulin 2.6 g/dL (2.4-3.5); Glucose 93 mg/dL (83-110); Potassium 4.2 mmol/L (3.5-5.1); Protein, Total 5.7 g/dL (5.8-8.1); Sodium 133 mmol/L (136-145)
[2020-03-08] MEDS: Apixaban 5 MG TAB PO SCH ×2 (08:16→20:42)
[2020-03-08] MEDS: traMADol HCl 50 MG TAB PO PRN ×3 (08:16→22:04)
[2020-03-08] MEDS: Famotidine 20 MG TAB PO SCH ×2 (08:16→20:42)
[2020-03-08] MEDS ORDERED: Apixaban 5 MG TAB PO SCH (20:45)
[2020-03-09 05:31] LABS: Hemoglobin 11.7 g/dL (14.0-18.0); Platelet Count 164 thou/uL (130-400)
--- NOTE | 2020-03-09 06:35 | PRG ---
DATE OF SERVICE: 03/08/2020 SUBJECTIVE: The patient feels well, having some significant pain after therapy, but has taken pain medication and is having some improvement. States he did do his therapy. OBJECTIVE: VITAL SIGNS: Shows temperature 99.4, pulse 87, respirations 20, O2 sats 100% on room air, blood pressure 139/58. LUNGS: Clear. CARDIAC: Shows regular rhythm. ABDOMEN: Soft and nontender. SKIN/EXTREMITIES: Show healing left lateral hip incision. LABORATORY DATA: Repeat labs showed sodium 133, potassium 4.2, chloride 99, BUN 20, creatinine 1.15. White count 6700, hematocrit 35, hemoglobin 11. ASSESSMENT: 1. Resolving left total hip replacement. 2. Stable paroxysmal atrial fibrillation. 3. Hypertension, controlled to goal. 4. heart failure, asymptomatic and compensated. PLAN: 1. Continue PT, OT. 2. Stressed the patient need to take medications prior to therapy . Plan to continue to monitor for paroxysmal atrial fib and decompensation of congestive heart failure. Job ID: [id number]
--- NOTE | 2020-03-09 06:56 | PRG ---
DATE OF SERVICE: 03/06/2020 SUBJECTIVE: The patient is lying in bed, feels well after left total hip replacement for osteoarthritis. Therapy will not be started however until Sunday night. OBJECTIVE: VITAL SIGNS: Showing to have temperature 96.9, pulse 88, respirations 20, O2 saturation is 95% on room air, and blood pressure 159/69. LUNGS: Clear. CARDIAC: Shows regular rhythm. ABDOMEN: Soft, nontender. EXTREMITIES: Left hip shows healing . LABORATORIES: Showed a white count of 7200, hematocrit 38, and hemoglobin 12. Sodium 133, potassium 4.1, chloride 100, bicarb 24, BUN 16, creatinine 1.05, GFR 68, total bilirubin 1.5, AST 35, and ALT 9. ASSESSMENT: 1. Resolving left hip replacement. 2. Resolved atrial fibrillation, possibly paroxysmal. 3. Systolic heart failure, stable. 4. Hypertension, controlled to goal. PLAN: 1. Continue pain relief medications. 2. Start PT and OT. 3. Continue metoprolol and apixaban for paroxysmal atrial fibrillation. Job ID: [id number]
[2020-03-09] MEDS: Famotidine 20 MG TAB PO SCH ×2 (07:48→20:48)
[2020-03-09] MEDS: Apixaban 5 MG TAB PO SCH ×2 (07:49→20:47)
[2020-03-09] MEDS: traMADol HCl 50 MG TAB PO PRN (07:50)
[2020-03-09] MEDS ORDERED: Magnesium Citrate 300 ML BOT PO SCH (17:15)
[2020-03-09] MEDS: Polyethylene Glycol 3350 17 GM Packet PO SCH (20:47)
[2020-03-09] MEDS: Docusate 100 MG CAP PO SCH (20:47)
[2020-03-10] MEDS: traMADol HCl 50 MG TAB PO PRN ×2 (00:29→08:18)
--- NOTE | 2020-03-10 06:24 | PRG ---
DATE OF SERVICE: 03/09/2020 SUBJECTIVE: The patient is sitting up in chair, working with therapy at this time. States he feels he is doing better and is taking his pain medication with fair control. that his transfer in the van for evaluation by orthopedic surgeon most painful. OBJECTIVE: Shows, VITAL SIGNS: Blood pressure is 143/76, temperature is 99, pulse 76, respirations 18, and O2 sats 97% on room air. LUNGS: Clear. CARDIAC: Displays regular rhythm. ABDOMEN: Soft and nontender. SKIN/EXTREMITIES: Show healing left lateral hip incision. No swelling or tenderness of the calf. LABORATORIES: Yesterday showed white count 6700, hematocrit 35, hemoglobin 11.9, platelet count 168,000. Sodium 133, potassium 4.2, chloride 99, bicarb 26, BUN 20, creatinine 1.15, albumin 3.1. ASSESSMENT: 1. Resolving left hip replacement. 2. Paroxysmal atrial fibrillation with rate control and anticoagulation. 3. Hypertension, controlled to goal. 4. Systolic heart failure, asymptomatic. PLAN: 1. Continue PT and OT. 2. Continue rate control and anticoagulation for paroxysmal atrial fibrillation. 3. Continue to stress need for pain medications with therapy. 4. Continue to monitor for signs of congestive heart failure, angina with therapy. Job ID: [id number]
[2020-03-10] MEDS: Apixaban 5 MG TAB PO SCH ×2 (08:13→20:44)
[2020-03-10] MEDS: Docusate 100 MG CAP PO SCH ×2 (08:13→21:06)
[2020-03-10] MEDS: Famotidine 20 MG TAB PO SCH ×2 (08:13→20:44)
[2020-03-10] MEDS: Polyethylene Glycol 3350 17 GM Packet PO SCH ×2 (08:14→21:06)
[2020-03-10] MEDS: Acetaminophen 325 MG TAB PO PRN (08:17)
[2020-03-11] MEDS: Apixaban 5 MG TAB PO SCH ×2 (08:11→20:16)
[2020-03-11] MEDS: Polyethylene Glycol 3350 17 GM Packet PO SCH ×2 (08:11→20:17)
[2020-03-11] MEDS: Docusate 100 MG CAP PO SCH ×2 (08:11→20:17)
[2020-03-11] MEDS: Famotidine 20 MG TAB PO SCH ×2 (08:12→20:16)
[2020-03-11] MEDS: traMADol HCl 50 MG TAB PO PRN ×2 (08:14→15:12)
--- NOTE | 2020-03-11 13:07 | PRG ---
DATE OF SERVICE: 03/10/2020 SUBJECTIVE: The patient is sitting up in the chair, resting, has had his therapy today and is exhausted, but states he did well with control of his pain, not taking pain medications prior to therapy. He is having no shortness of breath or chest pain. OBJECTIVE: VITAL SIGNS: Shows temperature is 97, pulse 68, respirations 18, and O2 saturations 99% on room air. LUNGS: Clear. CARDIAC: Shows regular rhythm. ABDOMEN: Soft and nontender. EXTREMITIES: Left lateral hip incision is healing well with no edema, clubbing, or cyanosis. ASSESSMENT: 1. Resolving left hip replacement. 2. Paroxysmal atrial fibrillation with rate control on anticoagulation, but now appears to be in sinus rhythm. 3. Hypertension, controlled to goal. 4. Systolic heart failure, asymptomatic. PLAN: 1. Continue pain relief as indicated. 2. Continue PT/OT. 3. Continue rate control on anticoagulation of paroxysmal atrial fibrillation. 4. Continue to monitor for signs of angina, shortness of breath with therapy. Job ID: [id number]
--- NOTE | 2020-03-11 17:52 | PRG ---
DATE OF SERVICE: 03/11/2020 SUBJECTIVE: The patient is complaining more of his old previous right total hip replacement with severe pain starting yesterday, limiting his therapy. His left hip replacement has recently done. He is doing much better. OBJECTIVE: VITAL SIGNS: Show blood pressure is 117/58, temperature is 98.7, pulse 66, respirations 18, O2 sats 97% on room air. LUNGS: Clear. CARDIAC: Regular rhythm. EXTREMITIES: Right leg shows tenderness to palpation in the mid thigh. No erythema or warmth. Left hip shows lateral hip incision healing well. ASSESSMENT: 1. Resolving left total hip, normally. 2. Increased pain in right total hip from last year. PLAN: 1. X-ray of right hip to see of any new damage done. 2. Continue PT, OT, and pain relief. Job ID: [id number]
--- NOTE | 2020-03-11 18:52 | RAD ---
XR Hip Rt 2-3 View History: Pain Comparison: CT right hip 2018 Findings: Intact right hip arthroplasty without displacement. Obturator rings are intact. No SI joint widening. Moderate degenerative changes lower lumbar spine. Extensive heterotopic ossification along the right hip. 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
[2020-03-12] MEDS: Famotidine 20 MG TAB PO SCH ×2 (08:43→20:49)
[2020-03-12] MEDS: Polyethylene Glycol 3350 17 GM Packet PO SCH ×2 (08:44→20:50)
[2020-03-12] MEDS: Docusate 100 MG CAP PO SCH ×2 (08:44→20:49)
[2020-03-12] MEDS: Apixaban 5 MG TAB PO SCH ×2 (08:45→20:49)
[2020-03-12] MEDS: traMADol HCl 50 MG TAB PO PRN (08:55)
[2020-03-13] MEDS: traMADol HCl 50 MG TAB PO PRN (08:02)
[2020-03-13] MEDS: Famotidine 20 MG TAB PO SCH ×2 (08:02→20:42)
[2020-03-13] MEDS: Apixaban 5 MG TAB PO SCH ×2 (08:02→20:42)
[2020-03-13] MEDS: Polyethylene Glycol 3350 17 GM Packet PO SCH ×2 (08:03→19:53)
[2020-03-13] MEDS: Docusate 100 MG CAP PO SCH ×2 (08:03→19:53)
--- NOTE | 2020-03-13 17:07 | PRG ---
DATE OF SERVICE: 03/13/2020 SUBJECTIVE: Mr. Lozano is up in his chair. He denies any complaints, had occasional cough, but apparently it seems to be better with incentive spirometer use. OBJECTIVE: VITAL SIGNS: He is afebrile, heart rate 84, respirations 18, oxygen saturation 98% on room air, and blood pressure 138/64. CARDIOVASCULAR SYSTEM: S1 and S2 plus. RESPIRATORY SYSTEM: Normal vesicular breath sounds. ABDOMEN: Soft, nontender. Bowel sounds heard in all quadrants. EXTREMITIES: Without cyanosis or clubbing. Left hip incision is healthy. IMPRESSION: 1. Osteoarthritis, status post left total hip replacement. 2. Paroxysmal atrial fibrillation. 3. Chronic systolic congestive heart failure. 4. Hypertension. 5. Deconditioning. PLAN: 1. Continue current medications. 2. Heart healthy diet. 3. Orthopedic precautions and incision care. 4. DVT prophylaxis-he is on Eliquis. 5. Decubitus precautions. 6. Stress ulcer prophylaxis. 7. Incentive spirometry. 8. Routine laboratory values. 9. Continue therapy. Job ID: [id number]
[2020-03-14] MEDS: Apixaban 5 MG TAB PO SCH ×2 (08:04→20:20)
[2020-03-14] MEDS: Docusate 100 MG CAP PO SCH ×2 (08:04→19:59)
[2020-03-14] MEDS: traMADol HCl 50 MG TAB PO PRN ×2 (08:05→20:20)
[2020-03-14] MEDS: Famotidine 20 MG TAB PO SCH ×2 (08:06→20:19)
[2020-03-14] MEDS: Polyethylene Glycol 3350 17 GM Packet PO SCH ×2 (08:07→19:58)
[2020-03-14] MEDS ORDERED: Meloxicam 7.5 MG TAB PO SCH (15:45)
--- NOTE | 2020-03-14 16:46 | PRG ---
DATE OF SERVICE: SUBJECTIVE: Mr. Lozano is resting in bed. He is upset. He states that now his right hip is hurting, which apparently was replaced year and half ago. When I tried to explain to him that it most likely is because he is favoring his left hip, which was just replaced, he did not want to hear it. He started yelling about all doctors being the same and they do not do anything and they always say it is related to this or that and not fix a problem. I again tried to explain to him that since it was replaced recently and he has been doing well until now and he denies any fall or unusual activity, it is unlikely to be any hardware issue or loosening and most likely is related to muscle spasms or ligament strain and advised him to try some warm compresses and anti-inflammatory medicine, but he did not want to do any of that. I also advised him I can do an x-ray to make sure there are no changes and he did not want to do that either. to give him time to calm down and then we will let his physician, Dr. Wilhelm know and maybe the patient will be more receptive to workup tomorrow. OBJECTIVE: VITAL SIGNS: He is afebrile, heart rate 84, respirations 18, oxygen saturation 98% on room air, blood pressure 146/64. CARDIOVASCULAR: S1 and S2 plus. RESPIRATORY: Normal vesicular breath sounds. ABDOMEN: Soft and nontender. Bowel sounds heard in all quadrants. EXTREMITIES: Without cyanosis or clubbing. Left hip incision with dressing. Right hip examination is essentially unremarkable except for possible trochanteric bursitis. IMPRESSION: 1. Recent left hip arthroplasty. 2. Possible right greater trochanteric bursitis. 3. Paroxysmal atrial fibrillation. 4. Chronic systolic congestive heart failure. 5. Hypertension. 6. Deconditioning. PLAN: 1. Continue current medications. 2. Trial of meloxicam 7.5 mg daily. 3. Warm compresses to the greater trochanter area. 4. Physical therapy. 5. DVT prophylaxis-he is on Eliquis. 6. Decubitus precaution. 7. Stress ulcer prophylaxis. 8. Dr[facility]. Job ID: [id number]
[2020-03-15] MEDS: Meloxicam 7.5 MG TAB PO SCH (08:24)
[2020-03-15] MEDS: Docusate 100 MG CAP PO SCH ×2 (08:24→20:34)
[2020-03-15] MEDS: Apixaban 5 MG TAB PO SCH ×2 (08:24→20:34)
[2020-03-15] MEDS: Famotidine 20 MG TAB PO SCH ×2 (08:24→20:34)
[2020-03-15] MEDS: traMADol HCl 50 MG TAB PO PRN (08:26)
[2020-03-15] MEDS: Polyethylene Glycol 3350 17 GM Packet PO SCH ×2 (08:26→20:34)
--- NOTE | 2020-03-15 13:14 | PRG ---
DATE OF SERVICE: 03/15/2020 SUBJECTIVE: The patient is sitting up in a chair, feels well at rest, but is complaining of persistent pain in his right leg on walking. Right femur x-ray shows no bony abnormalities or problems with the previous surgery, but the patient does have significant myositis ossificans. Discussed this with his surgeon, Dr. Toby Pack, who states the patient has had this previously, but did appear to have improved pain with control with physical therapy and would advise more pain medicine and physical therapy. OBJECTIVE: VITAL SIGNS: Shows temperature 98.6, pulse 71, respirations 18, O2 saturations 92% on room air, and blood pressure 132/63. LUNGS: Clear. CARDIAC: Shows regular rhythm. ABDOMEN: Soft and nontender. EXTREMITIES: Right leg shows some tenderness to palpation of the right thigh. Left lateral hip incision is healing well. ASSESSMENT: 1. Fasciitis, myositis ossificans of the right femur in need of pain therapy and physical therapy. 2. Left hip replacement, healing well. 3. Hypertension, controlled to goal. 4. Systolic heart failure, symptomatic. PLAN: 1. Continue pain relief and PT. 2. Discuss Orthopedic recommendations with patient. 3. Continue rate control and anticoagulation of paroxysmal atrial fibrillation. Job ID: [id number]
[2020-03-16 05:25] LABS: Hemoglobin 12.4 g/dL (14.0-18.0); Platelet Count 325 thou/uL (130-400)
[2020-03-16] MEDS: Docusate 100 MG CAP PO SCH ×2 (08:25→20:40)
[2020-03-16] MEDS: Famotidine 20 MG TAB PO SCH ×2 (08:25→20:40)
[2020-03-16] MEDS: Apixaban 5 MG TAB PO SCH ×2 (08:25→20:40)
[2020-03-16] MEDS: Meloxicam 7.5 MG TAB PO SCH (08:25)
[2020-03-16] MEDS: traMADol HCl 50 MG TAB PO PRN (08:26)
[2020-03-16] MEDS: Polyethylene Glycol 3350 17 GM Packet PO SCH ×2 (08:26→20:40)
--- NOTE | 2020-03-16 09:35 | PRG ---
DATE OF SERVICE: 03/15/2020 SUBJECTIVE: The patient is sitting up in a chair, comfortable at rest and is able to walk, was still having significant pain on flexion of his thigh, not so much extension of the knee. He states that he has not had previous pain like this initially after the first surgery. OBJECTIVE: VITAL SIGNS: Temperature is 97.5, pulse 76, respirations 20, O2 sats 98% on room air, blood pressure 140/70. LUNGS: Clear. CARDIAC: Shows regular rhythm. No gallops or murmurs. EXTREMITIES: Right leg show some minimal tenderness to palpation of the right thigh, but severe tenderness upon flexion of the hip. Left lateral hip incision healing well. ASSESSMENT: 1. Myositis ossificans of the right femur limiting therapy with some weakness on flexion of the right hip. 2. Left hip replacement, healing well. 3. Hypertension, controlled to goal. 4. Systolic heart failure, asymptomatic. PLAN: Continue PT, OT. Follow up with orthopedic surgeon this week. Continue rate control and anticoagulation of paroxysmal atrial fibrillation. Job ID: [id number]
[2020-03-16 10:06] VITALS: BMI 23.3
[2020-03-17] MEDS: Docusate 100 MG CAP PO SCH ×2 (08:24→20:40)
[2020-03-17] MEDS: Meloxicam 7.5 MG TAB PO SCH (08:24)
[2020-03-17] MEDS: Polyethylene Glycol 3350 17 GM Packet PO SCH ×2 (08:24→20:40)
[2020-03-17] MEDS: Apixaban 5 MG TAB PO SCH ×2 (08:25→20:40)
[2020-03-17] MEDS: Famotidine 20 MG TAB PO SCH ×2 (08:25→20:40)
--- NOTE | 2020-03-17 20:55 | PRG ---
DATE OF SERVICE: 03/16/2020 SUBJECTIVE: The patient feels well with persistent pain in his leg, but is able to get up and walk and is awaiting his followup with orthopedic surgeon. I have not discussed with Physical Therapy his discharge date. OBJECTIVE: VITAL SIGNS: Shows blood pressure is 125/61, temperature 96.9, pulse 62, respirations 20, and O2 sats 100% on room air. LUNGS: Clear. CARDIAC: Shows regular rhythm. ABDOMEN: Soft and nontender. EXTREMITIES: Right thigh shows some tenderness to palpation. Left hip shows healing lateral hip incision. ASSESSMENT: 1. Resolving left total hip replacement. 2. Persistent myositis ossificans of the right hip. 3. Stable hypertension. 4. Compensated systolic heart failure. PLAN: 1. Continue PT, OT. 2. Continue pain relief as needed. 3. Follow up with orthopedic surgeon this week. 4. Discuss discharge planning with Physical Therapy. 5. Continue rate control and anticoagulation for paroxysmal atrial fibrillation. Job ID: [id number]
--- NOTE | 2020-03-17 21:27 | PRG ---
DATE OF SERVICE: 03/17/2020 SUBJECTIVE: The patient is sitting in the bed, has finished therapy today. Awaiting follow up with orthopedic surgeon tomorrow. Physical Therapy has stated that the patient is stable to be discharged home tomorrow. The patient states that his daughter can bring him to orthopedic surgeon and then bring him home and hopefully, he can be discharged tomorrow. OBJECTIVE: VITAL SIGNS: Temperature is 97.4, pulse 86, respirations 20, O2 sats 100% on room air, blood pressure 148/63. LUNGS: Clear. CARDIAC: Showed regular rhythm. ABDOMEN: Soft, nontender. SKIN/EXTREMITIES: Show healed left lateral hip incision. Mild tenderness to right thigh. ASSESSMENT: 1. Resolving left total hip replacement. 2. Stable myositis ossificans. 3. Paroxysmal atrial fibrillation with rate control on anticoagulation. 4. Hypertension, controlled to goal. 5. Systolic heart failure, compensated. PLAN: Follow up with orthopedic surgeon tomorrow. Probable discharge tomorrow. No concerns for orthopedic surgeon. Job ID: [id number]
[2020-03-18] MEDS: Acetaminophen 325 MG TAB PO PRN (08:18)
[2020-03-18] MEDS: traMADol HCl 50 MG TAB PO PRN (08:19)
[2020-03-18] MEDS: Meloxicam 7.5 MG TAB PO SCH (08:20)
[2020-03-18] MEDS: Apixaban 5 MG TAB PO SCH (08:20)
[2020-03-18] MEDS: Docusate 100 MG CAP PO SCH ×2 (08:20→08:22)
[2020-03-18] MEDS: Famotidine 20 MG TAB PO SCH (08:20)
[2020-03-18] MEDS: Polyethylene Glycol 3350 17 GM Packet PO SCH (08:21)
[2020-03-18 12:48] VITALS: TEMP 96.7
[2020-03-18 15:00] VITALS: BP 143/64
== END 2020-03-18 12:49 | disposition home health service (06) | DRG 560 ==
LOC: NAV ACUTE 18:49
PROVIDERS: ADMIT Internal Medicine; ATTEND Internal Medicine
DX: Z47.1 Aftercare following joint replacement surgery (principal); I50.22 Chronic systolic (congestive) heart failure; Z96.642 Presence of left artificial hip joint; I48.0 Paroxysmal atrial fibrillation; I11.0 Hypertensive heart disease with heart failure; Z87.891 Personal history of nicotine dependence; Z79.01 Long term (current) use of anticoagulants; R53.81 Other malaise; M61.9 Calcification and ossification of muscle, unspecified
CPT/HCPCS: 36415; 80053; 82565; 85014; 85018; 85025; 85049

== ENCOUNTER 2021-05-18 12:50 | Outpatient (CLI) | payer MEDICARE, BC | END 2021-05-18 12:51 | disposition home or self-care (01) | LOC: NAV RAD 12:50 | PROVIDERS: ATTEND Family Medicine | DX: M25.512 Pain in left shoulder (principal); M25.551 Pain in right hip; M25.552 Pain in left hip; M54.50 Low back pain, unspecified; M47.816 Spondylosis without myelopathy or radiculopathy, lumbar region; M47.818 Spondylosis without myelopathy or radiculopathy, sacral and sacrococcygeal region; M16.11 Unilateral primary osteoarthritis, right hip; M19.012 Primary osteoarthritis, left shoulder; Z96.643 Presence of artificial hip joint, bilateral | CPT/HCPCS: 72100 ==